=== PATIENT | male | born 1970 | race Caucasian/White ===

== ENCOUNTER 2018-05-27 20:46 | Emergency (ER) | payer OTHER ==
[~2018-05-27] VITALS: Ht 180.3 cm; Wt 89.4 kg
--- NOTE | 2018-05-27 21:26 | RAD ---
Indication: Injury, fall TECHNIQUE: 2 views of the clavicle and 2 views of the right shoulder COMPARISON: None FINDINGS/ impression: There is an oblique complete mildly displaced fracture through the mid to distal right clavicle. Acromioclavicular joint is widened measuring 1.1 cm suggesting grade 1 separation. Glenohumeral joint is intact. Visualized right lung is clear. Electronically signed by: Jackson Ruelas DO (05/27/2018 9:23 PM) [facility]
[2018-05-27] MEDS ORDERED: HYDR-2765 PO (21:41)
[2018-05-27] MEDS ORDERED: KETO10TA PO (21:41)
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
[2018-05-27 22:29] VITALS: BP 140/87
== END 2018-05-27 22:20 | disposition home or self-care (01) ==
LOC: ER 20:46
DX: S42.021A Displaced fracture of shaft of right clavicle, initial encounter for closed fracture (principal); S43.101A Unspecified dislocation of right acromioclavicular joint, initial encounter; Y01.XXXA Assault by pushing from high place, initial encounter; Y93.75 Activity, martial arts; Y92.89 Other specified places as the place of occurrence of the external cause; Y99.8 Other external cause status
CPT/HCPCS: 73000; 73030; 99283